=== PATIENT | female | born 1990 | race Caucasian/White ===

== ENCOUNTER 2020-02-27 15:19 | Emergency (ER) | payer OTHER ==
[~2020-02-27] VITALS: Ht 165.1 cm; Wt 61.2 kg
[~2020-02-27 15:19] MED LIST: BACTRIM DS TAB1 EACH PO; DARVOCET-N 1001 EACH PO; DOXYCYCLINE 10100 MG PO; NOHOMEMEDICATIONS; NORCO 5-325 TA1 EACH PO; PENICILLIN VK500 MG PO; PROVENTIL IH; ZOLOFT25 MG PO
[2020-02-27] MEDS ORDERED: CIPROFLOXIN HC2.5 M1 OPHTHALMIC (16:04)
[2020-02-27] MEDS ORDERED: MEDROLDOSEPACK PO (16:04)
[2020-02-27] MEDS ORDERED: KEFLEX500 M1 PO (16:04)
[2020-02-27] MEDS ORDERED: NORCO 5-325 TA1 EAC2 PO (16:04)
[2020-02-27] MEDS ORDERED: ZANAFLEX4 MG PO (16:05)
[2020-02-27 16:20] VITALS: BP 122/72
== END 2020-02-27 16:21 | disposition home or self-care (01) ==
LOC: M.ERS 15:19
DX: H00.015 Hordeolum externum left lower eyelid (principal); H00.021 Hordeolum internum right upper eyelid; M54.5 Low back pain; M54.6 Pain in thoracic spine; Z90.49 Acquired absence of other specified parts of digestive tract; Z91.040 Latex allergy status